=== PATIENT | male | born 1990 | race Caucasian/White ===

== ENCOUNTER 2021-02-23 13:58 | Emergency (ER) | payer BC ==
[~2021-02-23] VITALS: Ht 182.9 cm; Wt 90.7 kg
[2021-02-23] MEDS ORDERED: CENTANY30 GM TOP (14:44)
[2021-02-23 15:04] VITALS: BP 126/72
== END 2021-02-23 15:05 | disposition home or self-care (01) ==
LOC: M.ERS 13:58
DX: T23.132A Burn of first degree of multiple left fingers (nail), not including thumb, initial encounter (principal); T31.0 Burns involving less than 10% of body surface